=== PATIENT | male | born 1955 | race Caucasian/White ===

== ENCOUNTER 2019-03-31 09:09 | Outpatient (CLI) | payer BC | END 2019-03-31 23:59 | disposition home or self-care (01) | LOC: VAS 09:09 | PROVIDERS: ATTEND Surgery | DX: I65.23 Occlusion and stenosis of bilateral carotid arteries (principal); E11.9 Type 2 diabetes mellitus without complications; Z87.891 Personal history of nicotine dependence | CPT/HCPCS: 93880 ==

== ENCOUNTER 2023-02-28 10:10 | Outpatient (CLI) | payer BC, MEDICARE ==
[~2023-02-28] VITALS: Ht 175.3 cm; Wt 86.8 kg
[2023-02-28 11:06] LABS: BASOPHILS # (AUTO) 0.1 X10'3 (0-0.2); BASOPHILS % (AUTO) 1.5 % (0-1); EOSINOPHILS # (AUTO) 0.1 X10'3 (0-0.9); EOSINOPHILS % (AUTO) 2.4 % (0-6); HEMATOCRIT 38.2 % (42.0-52.0); LYMPHOCYTES % (AUTO) 19.6 % (21-51); MEAN CORPUSCULAR HEMOGLOBIN 29.8 PG (27.0-31.0); MEAN CORPUSCULAR VOLUME 87.6 FL (78-98); MEAN PLATELET VOLUME 7.8 FL (7.4-10.4); MONOCYTES # (AUTO) 0.3 X10'3 (0-0.9); MONOCYTES % (AUTO) 6.6 % (2-12); NEUTROPHILS # (AUTO) 3.7 X10'3 (1.8-7.7); NEUTROPHILS % (AUTO) 69.9 % (42-75); PLATELET COUNT 161 X10'3 (140-440); RED BLOOD COUNT 4.36 X10'6 (4.70-6.10); WHITE BLOOD COUNT 5.2 X10'3 (4.5-11.0)
[2023-02-28 11:15] LABS: ALBUMIN 4.2 G/DL (3.4-5.0); ANION GAP 7 (8-16); BLOOD UREA NITROGEN 31 MG/DL (7-18); BUN/CREATININE RATIO 29.2 (10.0-20.0); CALCIUM 9.2 MG/DL (8.5-10.1); CHLORIDE 104 MMOL/L (99-107); CREATININE 1.06 MG/DL (0.60-1.10); GLUCOSE 118 MG/DL (70-104); POTASSIUM 4.3 MMOL/L (3.5-5.1); SODIUM 139 MMOL/L (135-145); TOTAL CARBON DIOXIDE 27.6 MMOL/L (24-32); eGFR 70 ML/MIN
[2023-02-28 11:18] LABS: APTT 27 SECONDS (22-32)
[2023-03-06] MEDS ORDERED: normal saline 1000ml 1,000 ML IV SCH (10:35)
[2023-03-06] MEDS ORDERED: MIDAZolam 1mg/ml 10ml vial IV ONE (10:35)
[2023-03-06] MEDS ORDERED: fentaNYL/PF 50MCG/1 ML 2ML syringe IV ONE (10:35)
== END 2023-02-28 23:59 | disposition home or self-care (01) ==
LOC: LAB 10:10 → EDSTATUS 03-05 17:00
PROVIDERS: ATTEND Student in an Organized Health Care Education/Training Program
DX: Z01.812 Encounter for preprocedural laboratory examination (principal); I65.23 Occlusion and stenosis of bilateral carotid arteries; I10 Essential (primary) hypertension; E11.59 Type 2 diabetes mellitus with other circulatory complications; E78.5 Hyperlipidemia, unspecified; Z86.73 Personal history of transient ischemic attack (TIA), and cerebral infarction without residual deficits; Z79.899 Other long term (current) drug therapy
CPT/HCPCS: 36415; 80048; 85025; 85610; 85730; J7030

== ENCOUNTER 2023-03-26 14:25 | Inpatient (IN) | payer BC, MEDICARE ==
[2023-03-26] VITALS (10 sets, daily range): BP systolic 151–188; BP diastolic 63–80
[~2023-03-26] VITALS: Ht 180.3 cm; Wt 107.6 kg
[2023-03-26] MEDS ORDERED: LORazepam 0.5 MG tablet PO PRN (14:50)
[2023-03-26] MEDS ORDERED: diphenhydrAMINE 25mg capsule PO PRN (14:50)
[2023-03-26] MEDS ORDERED: ATOR40TA72 PO (15:23)
[2023-03-26] MEDS ORDERED: CLOP75TA34 PO (15:23)
[2023-03-26] MEDS ORDERED: DULA3PEN SQ (15:23)
[2023-03-26] MEDS ORDERED: PIOG45TA65 PO (15:23)
[2023-03-26] MEDS ORDERED: METO50TA16 PO (15:23)
[2023-03-26] MEDS ORDERED: LOSA1TAB39 PO (15:23)
[2023-03-26] MEDS ORDERED: GLIM4TAB7 PO (15:23)
[2023-03-26] MEDS ORDERED: SERT-434 PO (15:23)
[2023-03-26] MEDS ORDERED: ASPI-611 PO (15:28)
[2023-03-26] MEDS ORDERED: AMLO10TA PO (15:28)
[2023-03-26] MEDS ORDERED: CHOL200074 PO (15:28)
[2023-03-26 15:39] LABS: BASOPHILS % (AUTO) 0.5 % (0-1); EOSINOPHILS # (AUTO) 0.1 X10'3 (0-0.9); EOSINOPHILS % (AUTO) 2.1 % (0-6); HEMATOCRIT 38.5 % (42.0-52.0); LYMPHOCYTES % (AUTO) 17.7 % (21-51); MEAN CORPUSCULAR HEMOGLOBIN 29.6 PG (27.0-31.0); MEAN CORPUSCULAR HGB CONC 33.8 g/dL (33.0-36.5); MEAN CORPUSCULAR VOLUME 87.5 FL (78-98); MONOCYTES # (AUTO) 0.4 X10'3 (0-0.9); MONOCYTES % (AUTO) 7.3 % (2-12); NEUTROPHILS % (AUTO) 72.4 % (42-75); PLATELET COUNT 170 X10'3 (140-440); RED BLOOD COUNT 4.39 X10'6 (4.70-6.10); RED CELL DISTRIBUTION WIDTH 14.8 % (11.5-14.5); WHITE BLOOD COUNT 5.6 X10'3 (4.5-11.0)
[2023-03-26] MEDS: normal saline 1,000 ML IV SCH ×2 (15:42→19:02)
[2023-03-26 15:49] LABS: APTT 24 SECONDS (22-32)
[2023-03-26 15:58] LABS: ALBUMIN 3.9 G/DL (3.4-5.0); ANION GAP 5 (8-16); BLOOD UREA NITROGEN 27 MG/DL (7-18); BUN/CREATININE RATIO 24.5 (10.0-20.0); CALCIUM 9.1 MG/DL (8.5-10.1); CHLORIDE 105 MMOL/L (99-107); GLUCOSE 130 MG/DL (70-104); POTASSIUM 4.1 MMOL/L (3.5-5.1); SODIUM 136 MMOL/L (135-145); TOTAL CARBON DIOXIDE 26.3 MMOL/L (24-32); eGFR 67 ML/MIN
[2023-03-26] MEDS ORDERED: phenylephrine 10mg/ml inj. -priapism dosing ONE (16:05)
[2023-03-26] MEDS ORDERED: DOPamine 400mg/D5W 250ml 0 ML IV ONE (16:05)
[2023-03-26] MEDS ORDERED: iohexol 350MG/ML 100ml bottle IV ONE (16:05)
[2023-03-26] MEDS ORDERED: atropine 0.1mg/ml 10ml syringe ONE (16:05)
[2023-03-26] MEDS ORDERED: clopidogrel 300mg tablet ONE (17:35)
--- NOTE | 2023-03-26 18:10 | NUR ---
PT REC'D ON [facility]. MOVED OVER TO HOSPITAL BED BY 2 NURSING STAFF - PT TOLERATED WELL. RIGHT GROIN DRESSING CDI, MINIMAL PAIN. RIGHT PEDAL PULSE PALPABLE. SBP > 180. FAXED ALL ORDERS TO PHARMACY AND PENDS REVIEW FOR PRN HYDRALAZINE. FAMILY IN ROOM AND PATIENT IS AWARE OF KEEPING LEGS STRAIGHT. CALL LIGHT WITHIN REACH. FREQ ROUNDING.
--- NOTE | 2023-03-26 18:14 | NUR ---
Problems reprioritized. Patient report given, questions answered & plan of care reviewed with OSIRIS Clifford.
[2023-03-26] MEDS ORDERED: pseudoephedrine 30mg tablet PO PRN (18:15)
[2023-03-26] MEDS ORDERED: HYDROcodone/acetaminophen 10/325mg tab PO PRN (18:15)
[2023-03-26] MEDS ORDERED: acetaminophen 325mg tablet PO PRN (18:15)
[2023-03-26] MEDS: DOPamine 400mg/D5W 250ml 250 ML IV SCH (18:15)
[2023-03-26] MEDS ORDERED: proCHLORperazine 10 MG/2 ml inj IV PRN (18:15)
[2023-03-26] MEDS ORDERED: HYDROcodone/acetaminophen 5mg/325mg tablet PO PRN (18:15)
[2023-03-26] MEDS: hydrALAZINE 20mg/ml inj. IV PRN (18:57)
[2023-03-26] MEDS: metoprolol tartrate 50mg tablet PO SCH (20:03)
--- NOTE | 2023-03-27 06:15 | NUR ---
Patient in room PCU 3021T. I have received report from Venessa NEWELL and had the opportunity to ask questions and assume patient care.
--- NOTE | 2023-03-27 06:16 | NUR ---
Problems reprioritized. Patient report given, questions answered & plan of care reviewed with OSIRIS Peralta.
[2023-03-27] MEDS: DOPamine 400mg/D5W 250ml 250 ML IV SCH (06:39)
[2023-03-27 07:00] VITALS: BP 179/72
[2023-03-27] MEDS ORDERED: atorvastatin 20mg tablet PO SCH (08:00)
[2023-03-27] MEDS ORDERED: amLODIPine 5mg tablet PO SCH (08:00)
[2023-03-27] MEDS ORDERED: cholecalciferol (vitamin D3) 1,000 unit (25mcg) tablet PO SCH (08:00)
[2023-03-27] MEDS ORDERED: HYDROchlorothiazide 25mg tablet PO SCH (08:00)
[2023-03-27] MEDS ORDERED: sertraline 50mg tablet PO SCH (08:00)
[2023-03-27] MEDS ORDERED: losartan 50mg tablet PO SCH (08:00)
[2023-03-27] MEDS ORDERED: clopidogrel 75mg tablet PO SCH (08:00)
[2023-03-27] MEDS ORDERED: aspirin 81mg, enteric-coated 1 TAB TABLET.DR PO SCH (08:00)
[2023-03-27] MEDS ORDERED: pioglitazone 45mg tablet PO SCH (08:00)
[2023-03-27] MEDS: metoprolol tartrate 50mg tablet PO SCH (08:08)
--- NOTE | 2023-03-27 09:48 | NUR ---
Paged pharmacy to send up missing am med actos: pends med
[2023-03-27 10:30] VITALS: BP 168/82
[2023-03-27] MEDS: normal saline 1,000 ML IV SCH (10:50)
[2023-03-27 11:07] VITALS: BP_SYST 168
[2023-03-27] MEDS: hydrALAZINE 20mg/ml inj. IV PRN (11:07)
--- NOTE | 2023-03-27 12:45 | NUR ---
Pt discharged home with all his belongings. Nurse went over medications to be continued, did teaching with pt, and Pt was able to have all questions answered prior to discharge. Stent card given to Pt family on 03/26/23, apt previously on plavix, no need to see med in hand per protocol. PIV discontinued, pt was wheeled to private vehicle, driving, in W/C per protocol with staff member.
--- NOTE | 2023-03-27 17:01 | NUR ---
[place] Medication Administration: For this medication-pass time frame, all medication were reviewed, dispensed, administered and documented per hospital policy by OSIRIS Duncan.
--- NOTE | 2023-03-27 17:01 | NUR ---
[facility] documentation: I have reviewed and agree with all interventions, assessments performed and documented by OSIRIS Duncan.
[2023-03-30] MEDS ORDERED: DULAGLUTIDE 3 MG SQ SCH (18:20)
== END 2023-03-27 12:47 | disposition home or self-care (01) | DRG 36 ==
LOC: SSTAY O 14:25 → PCU 3S 17:35
PROVIDERS: ADMIT Internal Medicine; ATTEND Student in an Organized Health Care Education/Training Program
PROC: B3191ZZ Fluoroscopy of Right External Carotid Artery using Low Osmolar Contrast (ICD-10-PCS; principal; 2023-03-26)
PROC: 037H3DZ Dilation of Right Common Carotid Artery with Intraluminal Device, Percutaneous Approach (ICD-10-PCS; 2023-03-26)
PROC: B3131ZZ Fluoroscopy of Right Common Carotid Artery using Low Osmolar Contrast (ICD-10-PCS; 2023-03-26)
PROC: B3161ZZ Fluoroscopy of Right Internal Carotid Artery using Low Osmolar Contrast (ICD-10-PCS; 2023-03-26)
PROC: B41F1ZZ Fluoroscopy of Right Lower Extremity Arteries using Low Osmolar Contrast (ICD-10-PCS; 2023-03-26)
PROC: B3101ZZ Fluoroscopy of Thoracic Aorta using Low Osmolar Contrast (ICD-10-PCS; 2023-03-26)
DX: I65.21 Occlusion and stenosis of right carotid artery (principal); Z00.6 Encounter for examination for normal comparison and control in clinical research program; E11.9 Type 2 diabetes mellitus without complications; E78.5 Hyperlipidemia, unspecified; I10 Essential (primary) hypertension; Z79.84 Long term (current) use of oral hypoglycemic drugs; Z79.899 Other long term (current) drug therapy; Z79.82 Long term (current) use of aspirin; Z86.73 Personal history of transient ischemic attack (TIA), and cerebral infarction without residual deficits
CPT/HCPCS: 36415; 37215; 80048; 85025; 85610; 85730; 93005; A6258; C1725; C1760; C1876; C1884; C1894; G0378; J0360; J0461; J1265; J1644; J2370; J7030; Q0163; Q9967